=== PATIENT | female | born 1995 | race Caucasian/White ===

== ENCOUNTER → 2020-06-18 08:45 | Outpatient (CLI) | payer BC, SELFPAY ==
[2020-06-19 19:21] LABS: COVID19 Sendout Not Detected (Not Detect)
== END ==
PROVIDERS: PCP Specialist; Visit Provider Physician Assistant
DX: Z11.59 Encounter for screening for other viral diseases (principal)
CPT/HCPCS: 87635

== ENCOUNTER 2020-06-21 08:12 | Day surgery (SDC) | payer BC, SELFPAY ==
[2020-06-18 12:36] VITALS: BMI 22.2
--- NOTE | 2020-06-21 | PATH_ITS ---
[facility] Accession Number: [id number] . 01 Material submitted: . PART A: peritoneum - PERITONEAL BIOPSY PART B: endometrium - ENDOMETRIAL BIOPSY . 02 Diagnosis: A. Peritoneum, Biopsy: Endometriosis. No evidence of malignancy. . B. Endometrium, Biopsy: Secretory endometrium with focal features suggestive of endometrial polyp. Negative for atypical hyperplasia or malignancy. V 06/26/2020 1016 Local . 02 Electronically signed: . Law Webb MD, PhD, Pathologist NPI- [id number] . 01 Gross description: . A. Received in formalin, labeled peritoneal lining, and consists of two sanchez-pink to sanchez-yellow fragments of soft tissue measuring 2.2 x 1.5 x 0.6 cm in aggregate. The specimen is entirely submitted in cassette A1. B. Received in formalin, labeled endometrial biopsy, and consists of multiple sanchez-blue fragments of soft tissue measuring 2.2 x 2.0 x 0.5 cm in aggregate. The specimen is filtered and entirely submitted in cassette B1. ([id number]) /MRV 06/25/2020 1108 Local . 02 Pathologist provided ICD-10: N92.0, R10.2, N80.9 . 02 CPT . 204475, 555806 Performed at: 01 [facility] [address], [place], [place] [id number] MD Kiran Ro MD Phone: [phone] Performed at: [address] [facility] [address] [place], [place] [id number] MD Anamaria Cano MD Phone: [phone]
[2020-06-21 08:30] VITALS: BP 126/81; PULSE 75; RESP 16; TEMP 36.6; O2SAT 100; BMI 22.6
[2020-06-21] MEDS: LACTATED RINGERS 1,000 ML 100 ML IV (08:30)
--- NOTE | 2020-06-21 08:34 | PM.PREOP ---
Pre-operative Note COVID-19 COVID-19 status: Negative Result date/Date tested (Pos, Neg/Pending): 06/18/20 Interval Note History & Physical reviewed/Exam performed by Physician: Yes Changes to H&P: No
[2020-06-21] MEDS: CEFAZOLIN 2 GM/100 ML FROZ.PIGGY IV (09:13)
--- NOTE | 2020-06-21 09:35 | SUR.OPER ---
Lithotomy on padded OR bed, head on pillow, arms secured on padded arm boards at <90 degrees abduction. Legs secured in padded yellow fins stirrups.
[2020-06-21] MEDS: BUPIVACAINE 0.5% W/ EPI (PF) 30 ML VIAL INJ (09:45)
[2020-06-21] MEDS: METHYLENE BLUE 50 MG/10 ML VIAL 25 MG INJ (09:48)
[2020-06-21 10:28] VITALS: BP 113/74; PULSE 81; RESP 7; TEMP 36.3; O2SAT 98
--- NOTE | 2020-06-21 10:30 | PM.OP.1 ---
Operative Date/Time/Diagnoses Date of procedure: 06/21/20 Time of procedure: 10:30 Pre-op diagnosis: Menorrhagia, dysmenorrhea, dyspareunia Post-op diagnosis: other (Perineal endometriosis) Procedure & Clinicians Procedure: Operative laparoscopy with resection of peritoneal endometriosis, hysteroscopy with endometrial curettage Same procedure as scheduled: Yes Indications: Menorrhagia, dysmenorrhea, dyspareunia Surgeon: Kendy Cai Click Yes if Unassisted: Yes Anesthesia Type: General Operative Notes Findings: Perineal endometriosis left uterosacral ligament, posterior cul-de-sac. Normal tubes, ovaries, and uterus. Normal appearing appendix. Normal bowel surface. Normal liver edge. Possible endometrial polyps, no obvious adenomyosis. Closure Type: primary Specimen(s): other (Endometrial curettage and perineal biopsies) Estimated Blood Loss (mL): 5 Procedure in detail: Patient was brought to the operating room where she underwent general anesthesia. She was placed in low [facility] stirrups and prepped and draped in usual sterile fashion. 2 g of Ancef were in prior to beginning of the case. Pulsatile stockings were in place and functional. Warming was with blankets. A single-tooth tenaculum was placed on the anterior lip of the cervix and the cervix dilated to #6 Hegar dilator. The Shari uterine manipulator was placed and balloon inflated with 3 mL of air. The area of the incisions were injected with half percent Marcaine with epinephrine. An incision was made in the umbilicus with a scalpel and the Verres needle placed in the abdomen. Confirmation of correct placement of the needle was performed by withdrawing on the syringe and then allowing fluid to fall freely through the needle. The abdomen was insufflated to 4 L of CO2. A 5 mm trocar was placed under direct visualization. 2 other 5 mm trochars were placed in the right and left lower quadrant under direct visualization after incising the skin. There did not appear to be any damage with placement of the trocars. The 2 areas of perineal endometriosis were grasped and resected with scissors attached to cautery set at 25 w coag. The specimens were sent to pathology. Adequate hemostasis was noted. Approximately 15 cc of 0.5% Marcaine were placed over the biopsy sites. The CO2 was allowed to escape from the abdomen. The trochars were removed. Skin was closed with 4-0 monocryl. A single-tooth tenaculum was placed on the anterior lip of the cervix. The hysteroscope was placed into the uterus with a sorbitol solution running and under constant suction. A endometrial curettage was performed. The endometrial curettage was sent to pathology. The patient went to recovery room in good condition counts of instruments and sponges were correct. The patient went to recovery room in good condition. Complications: none Post-operative Condition: stable Disposition: same day surgery Plan for aftercare: Home when awake and stable.
[2020-06-21 10:33] VITALS: BP 117/72; PULSE 77; RESP 11; TEMP 36.8; O2SAT 98
[2020-06-21 10:38] VITALS: BP 110/72; PULSE 65; RESP 9; TEMP 36.8; O2SAT 99
[2020-06-21] MEDS: OXYCODONE IR 5 MG TABLET PO (10:42)
[2020-06-21 10:48] VITALS: BP 114/72; PULSE 71; RESP 15; TEMP 36.4; O2SAT 100
[2020-06-21 11:04] VITALS: BP 113/64; PULSE 61; RESP 16; TEMP 36.6; O2SAT 98
== END 2020-06-21 11:05 | disposition home or self-care (01) ==
PROVIDERS: PCP Family Medicine; Referring Provider Specialist; Visit Provider Specialist
PROC: (CPT 49320; principal; 2020-06-21 09:15)
DX: N80.9 Endometriosis, unspecified (principal)
CPT/HCPCS: 58662; 58558; J0690; J1100; J1885; J2250; J2405; J2704; J3010; Q9968